=== PATIENT | male | born 1985 | race African-American/Black ===

== ENCOUNTER 2018-08-09 13:26 | Emergency (ER) | payer SELFPAY ==
[~2018-08-09] VITALS: Ht 167.6 cm; Wt 89.0 kg
[2018-08-09] MEDS ORDERED: KETOROLAC 60MG/2ML VIAL IM ONE (14:00)
[2018-08-09] MEDS ORDERED: PSEUDOEPHEDRINE HCL 30MG TABLET PO ONE (14:00)
[2018-08-09 14:12] VITALS: BP 133/86
== END 2018-08-09 15:06 | disposition home or self-care (01) ==
LOC: ER 13:26
DX: J32.9 Chronic sinusitis, unspecified (principal); R42 Dizziness and giddiness; F12.10 Cannabis abuse, uncomplicated; Z91.018 Allergy to other foods
CPT/HCPCS: 96372; 99283; J1885

== ENCOUNTER 2019-05-29 05:19 | Emergency (ER) | payer MEDICAID ==
[~2019-05-29] VITALS: Ht 162.6 cm; Wt 78.0 kg
[2019-05-29] MEDS ORDERED: LORAZEPAM 1MG TABLET PO ONE ×2 (06:30→11:45)
[2019-05-29 06:57] LABS: BASOPHILS % 0.5 % (0.0-2.0); EOSINOPHILS % 0.2 % (0.0-5.0); HEMATOCRIT. 46.9 % (42.0-52.0); HEMOGLOBIN. 15.7 g/dL (14.0-18.0); LYMPHOCYTES % 14.5 % (20.0-50.0); MEAN CORPUSCULAR HEMOGLOBIN 29.6 pg (28.0-32.0); MEAN CORPUSCULAR VOLUME 88.8 fL (80.0-94.0); MEAN PLATELET VOLUME 8.9 fl (7.4-10.4); MONOCYTES % 10.4 % (2.0-8.0); NEUTROPHILS % 74.4 % (40.0-76.0); PLATELET 210 x1000/uL (130-400); RED BLOOD CELL COUNT 5.29 mill/uL (4.7-6.1); RED CELL DISTRIBUTION WIDTH 13.1 % (11.6-14.6)
[2019-05-29 07:03] LABS: CHLORIDE 103 mEq/L (98-107)
[2019-05-29 07:06] LABS: ETHANOL BLOOD < 10 mg/dL
[2019-05-29 09:45] LABS: CLARITY URINE CLEAR (CLEAR); COLOR URINE YELLOW (YELLOW); KETONES URINE 3+ (NEGATIVE); LEUKOCYTE ESTERASE URINE NEGATIVE (NEGATIVE); NITRITE URINE NEGATIVE (NEGATIVE); OCCULT BLOOD URINE NEGATIVE (NEGATIVE); PH URINE 5.5 (4.5-8.0); PROTEIN URINE 1+ (NEGATIVE); SPECIFIC GRAVITY URINE 1.028 (1.005-1.030)
[2019-05-29 09:54] LABS: *AMPHETAMINES SCREEN URINE PRESUMTIVE POSITIVE (NEGATIVE); *BARBITURATES SCREEN URINE NEGATIVE (NEGATIVE); *BENZODIAZEPINES SCREEN URINE NEGATIVE (NEGATIVE); *COCAINE SCREEN URINE PRESUMTIVE POSITIVE (NEGATIVE)
[2019-05-29 09:55] LABS: CANNABINOID URINE SCREEN PRESUMTIVE POSITIVE (NEGATIVE); METHADONE URINE SCREEN NEGATIVE (NEGATIVE); OPIATES URINE SCREEN NEGATIVE (NEGATIVE); PHENCYCLIDINE URINE SCREEN NEGATIVE (NEGATIVE)
[2019-05-29] MEDS ORDERED: HALOPERIDOL 5MG TABLET PO ONE (11:45)
[2019-05-29 23:10] VITALS: BP 125/80
== END 2019-05-29 23:13 | disposition home or self-care (01) ==
LOC: ER 05:19
DX: R44.0 Auditory hallucinations (principal); F12.10 Cannabis abuse, uncomplicated; F14.10 Cocaine abuse, uncomplicated; F15.10 Other stimulant abuse, uncomplicated; Z91.018 Allergy to other foods
CPT/HCPCS: 36415; 80053; 80305; 80320; 81003; 85025; 93005; 99285; J1630; G0480

== ENCOUNTER 2023-07-19 19:19 | Emergency (ER) | payer MEDICAID ==
[~2023-07-19] VITALS: Ht 167.6 cm; Wt 82.0 kg
[2023-07-19 19:36] VITALS: O2SAT 100
[2023-07-19] MEDS: METOCLOPRAMIDE HCL 5MG TABLET PO ONE (21:21)
[2023-07-19] MEDS: KETOROLAC 15MG/ML VIAL IM ONE (21:22)
[2023-07-19 21:54] VITALS: BP 121/89; PULSE 61; RESP 16; TEMP 97.8
== END 2023-07-19 21:55 | disposition home or self-care (01) ==
LOC: ER 19:19
DX: R51.9 Headache, unspecified (principal); F19.90 Other psychoactive substance use, unspecified, uncomplicated; Z91.018 Allergy to other foods
CPT/HCPCS: 99283; 96372; J8597; J1885